=== PATIENT | female | born 1945 | race Asian ===

== ENCOUNTER 2022-02-02 05:05 | Emergency (ER) | payer OTHER ==
[~2022-02-02] VITALS: Ht 162.6 cm; Wt 91.6 kg
[2022-02-02] MEDS ORDERED: CARAFATE1 GM (05:44)
[2022-02-02] MEDS ORDERED: CLONAZEPAM0.5 MG (05:45)
[2022-02-02] MEDS ORDERED: AVAPRO150 MG (05:45)
[2022-02-02] MEDS ORDERED: NEURONTIN300 MG (05:45)
[2022-02-02] MEDS ORDERED: HYDRALAZINE HCL50 MG (05:45)
[2022-02-02] MEDS ORDERED: ABATINEX680 MG (05:46)
[2022-02-02] MEDS ORDERED: HUMALOG100 UNIT/2 (05:46)
[2022-02-02] MEDS ORDERED: LANTUS SOL100 UNIT/1 (05:47)
[2022-02-02] MEDS ORDERED: LEVOTHYROXINE25 MC2 (05:47)
[2022-02-02] MEDS ORDERED: ZORTRESS1 MG (05:48)
[2022-02-02] MEDS ORDERED: OMEGA-31000 MG (05:49)
[2022-02-02] MEDS ORDERED: LIPITOR20 MG (05:49)
[2022-02-02] MEDS ORDERED: BUMETANIDE0.5 MG (05:49)
[2022-02-02] MEDS ORDERED: PEPCID AC20 MG (05:49)
[2022-02-02] MEDS ORDERED: ECOTRIN81 MG (05:50)
[2022-02-02] MEDS ORDERED: VITAMIN D3250 MCG (05:51)
== END 2022-02-02 13:17 | disposition designated cancer center or children's hospital (05) ==
LOC: ER 05:05
DX: I50.9 Heart failure, unspecified (principal); I10 Essential (primary) hypertension